=== PATIENT | female | born 1990 | race Caucasian/White ===

== ENCOUNTER 2025-01-04 10:55 | Outpatient (AMB) | payer BC, SELFPAY ==
--- NOTE | 2025-01-04 11:07 | AMB.OBINITIA ---
Vital Signs 01/04/25 11:15 Height 1.57 m Height Method Stated Weight 75.013 kg Weight Measurement Method Standing Scale BMI 30.2 BP 125/84 Blood Pressure Source Automatic Cuff Blood Pressure Location Left Upper Arm Position Sitting Respiration 18 Pulse 78 Pulse Source Monitor Temp 98.1 F Temp Source Oral Pulse Oximetry (%) 98 Oxygen Delivery Method Room Air Allergies/Home Meds Allergies & Medications Allergies No Known Allergies Allergy (Verified 01/04/25 11:20) Medication Reconciliation No Known Home Medications 01/04/25 [History Confirmed 01/04/25] Intake Visit Data Collection New Patient or Established: New Patient (never been to [facility]) Reason for Visit:: Probable incomplete AB Seen by Clinical Staff ONLY (RN/MA): No Kettle Chipper Required: No Do You Feel Safe at Home: Yes Authorities Contacted: N/A PCP or OBGYN visit in last 3 months: No Hx Now: Yes Are you currently on any form of Control: No Pain Present Currently: No Pain Scale Used: Zepeda-Monzon/Numerical Pain scale:: 0 Smoking Status Smoking Status: Never smoker Questionnaires Covid-19 Vaccine Questionnaire Has patient been vacinated for Covid-19 Have you been vacinated for Covid-19: Yes PHQ-9 PHQ-2 Over the last 2 weeks, how often have you been bothered by any of the following problems? 1. Little interest or pleasure in doing things: not at all 2. Feeling down, depressed, or hopeless: not at all Total score: 0 PHQ-9 3. Trouble falling or staying asleep, or sleeping too much: Not at all 4. Feeling tired or having little energy: Not at all 5. Poor appetite or overeating: Not at all 6. Feeling bad about yourself - or that you are a failure or have let yourself or your family down: Not at all 7. Trouble concentrating on things, such as reading the newspaper or watching television: Not at all 8. Moving or speaking so slowly that other people could have noticed? - Or the opposite - being so fidgety or restless that you have been moving around a lot more than usual: not at all 9. Thoughts that you would be better off or of hurting yourself in some way: Not at all Total score: 0 Source: Developed by Drs. Brando LMagdalena Hawkins Kurt Kroenke and colleagues, with an educational mark from [employer]. Depression screen completed yes Social History Living Situation History Marital Status: Lives With: Family Housing: House Housing Other:: Patient stays home with their 3-year-old daughter Katelyn Tobacco History Smoking Status: Never smoker Second Hand Smoke Exposure: No Alcohol History Alcohol Intake: Never Domestic Abuse History Do You Feel Safe at Home: Yes History of Present Illness HPI Narrative The patient is a 34-year-old -0-0-1 who thought she was about 9 weeks . She went to [facility] emergency room December 27 and for bleeding in . They did see an intrauterine she stated around 6 weeks with no cardiac activity. I do not have any records today. They did not give her any records. She then passed a bunch of tissue on the toilet recently she did take a picture of this to show me. She is here today to follow-up. Of note she does not know when her last quantitative hCG dose was. She knows her blood type is O but she is not sure if she is Rh- or Rh+. She does not recall getting RhoGAM shots when she was . Patient is a little tearful in the office today as this was quite a desired . In the ER they thought she might have an early UTI and she is on cephalexin. She is still bleeding but it is not heavy today. No fevers chills. OB Ultrasound Indication Indication: Location viability of OB Ultrasound Ultrasound technique: transvaginal Gestational sac assessment: Presence, location, size, shape: No gestational sac no yolk sac no pole. Thickened endometrial stripe of 3 cm. SENIOR SOFTWARE QUALITY ANALYST: Past Medical History Past Medical History: Yes Psychiatric Problems (Anxiety. No medications) Additional Operations/Hospitalizations (year & reason): 07/11/2021. Her daughter Katelyn weighed around 6 pounds. She had an epidural. I took care of her. She delivered at [facility]. No other surgeries. Other Relevant History: Patient's only past medical history significant for anxiety OB Initial Visit Menstrual History Menstrual reliability: approximate (month known) Flow: normal Menstrual regularity: regular Monthly: Yes Age at menarche: 12 On control pills at conception: No Associated symptoms (LMP): Reports fatigue and breast tenderness OB History : 3 Para: 1 Hx Total # of Abortions (Spontaneous & Elective): 1 # of Living Children: 1 Delivery History 1st : Child's name: Katelyn date: 07/11/21 sex: female Delivery type: vaginal Delivery complications: NONE History of depression before or after : No Infection History & Risk Evaluation History of STDs: none Genetic Screening & History Genetic Screening/Teratology Counseling - Includes patient, baby's father, or anyone in either family with: 1. Patient's age 35 years or older as of estimated date of delivery: No 2. Thalassemia ([place], Guyanese, Mediterranean, or Background); MCV less than 80: No 3. Neural Tube Defect (Meningomyelocele, Spina Bifida, or Anencephaly): No 4. Congenital Heart Defect: No 5. Down Syndrome: No 6. Maykel-Sachs (Ashkenazi Rastafari, Cajun, Mohawk [place]er): No 7. Terrell Disease (Ashkenazi Rastafari): No 8. Familial Dysautonomia (Ashkenazi Rastafari): No 9. Sickle Cell Disease or Trait (): No 10. Hemophilia or other blood disorders: No 11. Muscular Dystrophy: No 12. Cystic Fibrosis: No 13. Linn's Chorea: No 14. Mental Retardation/Autism: No 15. Other inherited genetic or chromosomal disorder: No 16. Maternal Metabolic Disorder (EG,TYPE 1 Diabetes, PKU): No 17. Patient or baby's father had a child with defects not listed above: No 18. Recurrent loss or a stillbirth: No 19. Medications (including supplements, vitamins, herbs or otc drugs)/illicit/recreational drugs/alcohol since last menstrual period: No 20. Any other: No Infection History 1. Live with someone with TB or exposed to TB: No 2. Rash or viral illness since last menstrual period: No 3. Hepatitis B,C: No Other (see comments) Source: [employer] Review of Systems Review of Systems Narrative Review of Systems: Patient has been bleeding on and off since December 26. She has passed some tissue. No fevers chills no abnormal discharge. No severe pelvic pain. Constitutional Constitutional: Reports fatigue Endocrine Endocrine: Reports fatigue Exam General Limitations: no limitations General Appearance: alert, in no apparent distress, comfortable, cooperative, healthy appearing, well developed, anxious and other (Patient is tearful in the office today about her miscarriage) Neck Neck exam: Present normal inspection, full ROM and trachea midline Chest Chest inspection: Present normal inspection and symmetric chest wall rise Card Cardiovascular exam: Present regular rate, normal rhythm and normal heart sounds External exam: Present normal external exam Bimanual exam: Present normal bimanual exam Extremities Extremities exam: Present normal inspection and full ROM Back Back exam: Present normal inspection and full ROM Skin Skin exam: Present warm, dry, intact and normal color Office Procedures OB Clinic LOC & Office Proc's Nursing/Assessment Patient Status: Initial/New Patient OB Clinic Nursing Assessment: Medication Reconciliation, Update PMH in EMR and Vital Signs OB Clinic Coordination of Care: Complex Care and Chronic Disease 1-5, Consent,records obtained, informed consent, Education Simp Pt/Fam, Lab and Imaging orders, Results/Orders obtained and Staff clarify orders New Patient Charge New Patient Point Assignment: [id number] New Patient Point Charge: ENVIRONMENTAL CONSERVATION OFFICER Level 3 ([id number]) Assessment & Plan Diagnosis / Problem List (1) Incomplete : Status: Acute Assessment and Plan: Patient has a thickened stripe today. I did order an official ultrasound to look for retained products. Patient was told she might continue to have bleeding and cramping for the next week or so. She is to engage in pelvic rest until she stops bleeding for at least 2 more weeks. I also checked a quantitative hCG and a blood type today. We will call the patient back for follow-up with these results. Told the patient will need to follow her quantitative hCG down to 0.
[2025-01-04 11:15] VITALS: BP 125/84; PULSE 78; RESP 18; TEMP 36.7; O2SAT 98; BMI 30.2
== END 2025-01-04 12:00 | disposition home or self-care (01) ==
PROVIDERS: Supervising Provider Obstetrics & Gynecology; Visit Provider Obstetrics & Gynecology
DX: O03.4 Incomplete spontaneous abortion without complication (principal)
CPT/HCPCS: 99203; G0463

== ENCOUNTER → 2025-01-04 | Outpatient (CLI) | payer BC, SELFPAY ==
--- NOTE | 2025-01-04 12:18 | XR_ITS ---
Examination: Transvaginal ultrasound of the pelvis, complete Technique: Transvaginal sonographic images pelvis performed using jeronimo scale imaging Exam date and time: January 04, 2025 1323 hours INDICATIONS: Diagnosis incomplete , vaginal bleeding and cramping noticed beginning 2 weeks ago FINDINGS: Uterus 8.4 cm with thickened heterogeneous endometrium 18 mm Right ovary 2.4 cm arterial flow small follicles Left ovary 2.4 cm arterial flow small follicles Mild fluid in the cul-de-sac IMPRESSION: Findings most consistent with retained products of conception
[2025-01-04 14:49] LABS: Beta HCG,Quantitative 137 mIU/mL (<5.0)
== END | disposition home or self-care (01) ==
LOC: CDIM 12:11 → COPL 13:36
PROVIDERS: PCP Family Medicine; Referring Provider Obstetrics & Gynecology; Visit Provider Radiology Diagnostic Radiology
DX: O03.4 Incomplete spontaneous abortion without complication (principal)
CPT/HCPCS: 36415; 76830; 84702; 86900; 86901